=== PATIENT | female | born 1940 | race Caucasian/White ===

== ENCOUNTER 2021-02-26 15:32 | Emergency (ER) | payer MEDICAID ==
[~2021-02-26] VITALS: Ht 162.6 cm; Wt 68.0 kg
[2021-02-26 15:39] VITALS: BP 166/74
[2021-02-26] MEDS ORDERED: TETANUS, DIPHTHERIA, PERTUSSIS VAC/PF 0.5ML (>10YR OLD) IM ONE (16:45)
[2021-02-26] MEDS ORDERED: ACETAMINOPHEN 325MG TABLET PO ONE (16:45)
[2021-02-26] MEDS ORDERED: LIDOCAINE HCL/PF 1% 10 MG/ML 5ML VIAL INFIL ONE (16:45)
[2021-02-26] MEDS ORDERED: BACITRACIN ZINC OINT UDPKT TOP ONE (16:45)
[2021-02-26] MEDS ORDERED: LIDOCAINE HCL 1% 20ML VIAL (Pyxis) INJ INFIL SCH (17:00)
[2021-02-26] MEDS ORDERED: IBUP-2028 MT (18:17)
== END 2021-02-26 19:05 | disposition home or self-care (01) ==
LOC: ER 15:32
DX: S71.111A Laceration without foreign body, right thigh, initial encounter (principal); E78.00 Pure hypercholesterolemia, unspecified; I10 Essential (primary) hypertension; W22.8XXA Striking against or struck by other objects, initial encounter; Y93.89 Activity, other specified; Y92.018 Other place in single-family (private) house as the place of occurrence of the external cause
CPT/HCPCS: 12002; 90471; 90715; 99283; J3490

== ENCOUNTER 2021-02-28 15:55 | Emergency (ER) | payer MEDICAID ==
[~2021-02-28] VITALS: Ht 157.5 cm; Wt 75.0 kg
[~2021-02-28 15:55] MED LIST: IBUP-2028 MT
[2021-02-28 16:19] VITALS: BP 146/39
== END 2021-02-28 16:40 | disposition home or self-care (01) ==
LOC: ER 15:55
DX: Z48.00 Encounter for change or removal of nonsurgical wound dressing (principal)
CPT/HCPCS: 99281

== ENCOUNTER 2025-02-01 19:47 | Inpatient (IN) | payer MEDICAID ==
[~2025-02-01] VITALS: Ht 154.9 cm; Wt 47.8 kg
[2025-02-01 19:57] VITALS: O2SAT 97
[2025-02-01 21:12] LABS: HEMATOCRIT. 44.9 % (36.0-48.0); HEMOGLOBIN. 14.9 g/dL (12.0-16.0); MEAN PLATELET VOLUME 10.1 fl (7.4-10.4); PLATELET 167 x1000/uL (130-400); RED BLOOD CELL COUNT 4.55 mill/uL (4.2-5.4); RED CELL DISTRIBUTION WIDTH 13.6 % (11.6-14.6)
[2025-02-01 21:20] LABS: CREATININE 0.8 mg/dL (0.6-1.0); PROTEIN TOTAL 7.3 g/dL (6.0-8.3); UREA NITROGEN BLOOD 16 mg/dL (9-23)
[2025-02-01 21:21] LABS: ASPARTATE AMINOTRANSFERASE 29 IU/L (<34); TROPONIN I HIGH SENSITIVITY 17 ng/L (3.0-34)
[2025-02-01 21:22] LABS: BILIRUBIN DIRECT 0.2 mg/dL (<=3.0); BILIRUBIN TOTAL 0.8 mg/dL (0.1-1.0)
[2025-02-01] MEDS: ONDANSETRON HCL 4MG/2ML INJ IV ONE (21:22)
[2025-02-01] MEDS: SODIUM CHLORIDE 0.9% 1,000 ML IV ONE (21:22)
[2025-02-01 23:07] VITALS: BP 110/56; PULSE 71; RESP 18; TEMP 36.9; O2SAT 98
[2025-02-01 23:30] VITALS: BP 110/56; PULSE 71; RESP 18; TEMP 34.6944
[2025-02-01 23:35] LABS: LYMPHOCYTES % MANUAL 6.0 % (20.0-60.0); MONOCYTES % MANUAL 3.0 % (2.0-8.0); NEUTROPHILS % MANUAL 91.0 % (45.0-75.0); PLATELET ESTIMATE NORMAL
[2025-02-02] MEDS ORDERED: DEXTROSE 50% WATER 50ML SYRINGE IV PRN (02:00)
[2025-02-02] MEDS ORDERED: ONDANSETRON HCL 4MG/2ML INJ IV PRN (02:00)
[2025-02-02] MEDS ORDERED: HYDROCODONE/ACETAMINOPHEN 5/325MG TABLET PO PRN (02:00)
[2025-02-02] MEDS ORDERED: ACETAMINOPHEN 650MG/20.3ML UDC PO PRN (02:00)
[2025-02-02 04:00] VITALS: BP 100/58; PULSE 76; RESP 20; TEMP 36.6; O2SAT 99
[2025-02-02] MEDS: INSULIN LISPRO 100 UNITS/ML SUBCUT SCH (07:00)
[2025-02-02] MEDS: BLOOD SUGAR DIAGNOSTIC STRIP TEST SCH (07:00)
[2025-02-02 07:45] LABS: BASOPHILS % 0.2 % (0.0-2.0); EOSINOPHILS % 0.0 % (0.0-5.0); HEMATOCRIT. 37.5 % (36.0-48.0); HEMOGLOBIN. 12.6 g/dL (12.0-16.0); LYMPHOCYTES % 20.6 % (20.0-50.0); MEAN PLATELET VOLUME 10.2 fl (7.4-10.4); MONOCYTES % 7.2 % (2.0-8.0); NEUTROPHILS % 72.0 % (40.0-76.0); PLATELET 139 x1000/uL (130-400); RED BLOOD CELL COUNT 3.81 mill/uL (4.2-5.4); RED CELL DISTRIBUTION WIDTH 13.8 % (11.6-14.6)
[2025-02-02 07:46] LABS: CREATININE 0.7 mg/dL (0.6-1.0); TRIGLYCERIDE 69 mg/dL (0-150); UREA NITROGEN BLOOD 10 mg/dL (9-23)
[2025-02-02 07:47] LABS: LDL CHOLESTEROL 98 mg/dL (5-100)
[2025-02-02 08:00] VITALS: BP 119/46; PULSE 68; RESP 20; TEMP 36.5; O2SAT 95
[2025-02-02] MEDS: ATORVASTATIN CALCIUM 40MG TABLET PO SCH (08:13)
[2025-02-02] MEDS: AMLODIPINE 5MG TABLET PO SCH (08:14)
[2025-02-02 12:00] VITALS: BP 108/45; PULSE 70; RESP 20; TEMP 36.3; O2SAT 95
[2025-02-02] MEDS: ENOXAPARIN 40MG/0.4ML SYR SUBCUT SCH (13:32)
[2025-02-02 16:00] VITALS: BP 109/53; PULSE 67; RESP 18; TEMP 36.5; O2SAT 96
[2025-02-02 20:00] VITALS: BP 122/69; PULSE 84; RESP 17; TEMP 36.1; O2SAT 96
[2025-02-02 22:45] LABS: CLARITY URINE CLOUDY (CLEAR); COLOR URINE YELLOW (YELLOW); GLUCOSE URINE TRACE (NEGATIVE); KETONES URINE TRACE (NEGATIVE); LEUKOCYTE ESTERASE URINE 2+ (NEGATIVE); NITRITE URINE NEGATIVE (NEGATIVE); OCCULT BLOOD URINE 2+ (NEGATIVE); PH URINE 5.5 (4.5-8.0); PROTEIN URINE 1+ (NEGATIVE); SPECIFIC GRAVITY URINE 1.022 (1.005-1.030); UROBILINOGEN URINE 1.0 E.U./dL (0.2-1.0)
[2025-02-02 23:17] LABS: BACTERIA URINE 4+
[2025-02-02 23:18] LABS: SQUAMOUS EPITHELIAL CELL URINE 1+ /lpf (RARE/1+); WBC URINE 15-25 /hpf (0-2)
[2025-02-03] VITALS (7 sets, daily range): BP systolic 110–118; BP diastolic 50–66; PULSE 75–76; RESP 16–17; TEMP 36.6–36.8; O2SAT 97–98
[2025-02-03] MEDS: ASPIRIN 81MG TABLET PO SCH (08:35)
[2025-02-03] MEDS ORDERED: NALOXONE HCL 0.4MG/ML VIAL IV PRN (19:15)
[2025-02-03] MEDS: CEFTRIAXONE 1GM/50ML 50 ML IV SCH (21:00)
[2025-02-04] VITALS: BP 122/70; RESP 17; TEMP 36.4; O2SAT 98
[2025-02-04 04:00] VITALS: BP 132/73; RESP 16; TEMP 36.8; O2SAT 98
[2025-02-04 07:07] LABS: BASOPHILS % 0.6 % (0.0-2.0); EOSINOPHILS % 0.9 % (0.0-5.0); HEMATOCRIT. 38.6 % (36.0-48.0); HEMOGLOBIN. 12.8 g/dL (12.0-16.0); LYMPHOCYTES % 35.0 % (20.0-50.0); MEAN PLATELET VOLUME 9.8 fl (7.4-10.4); MONOCYTES % 7.9 % (2.0-8.0); NEUTROPHILS % 55.6 % (40.0-76.0); PLATELET 142 x1000/uL (130-400); RED BLOOD CELL COUNT 3.90 mill/uL (4.2-5.4); RED CELL DISTRIBUTION WIDTH 13.5 % (11.6-14.6)
[2025-02-04 07:31] LABS: CREATININE 0.7 mg/dL (0.6-1.0)
[2025-02-04 07:34] LABS: UREA NITROGEN BLOOD 9 mg/dL (9-23)
[2025-02-04 08:00] VITALS: BP 120/43; PULSE 77; RESP 17; TEMP 35.7; O2SAT 98
[2025-02-04] MEDS: ENOXAPARIN 30MG/0.3ML SYR SUBCUT SCH (08:22)
[2025-02-04 12:00] VITALS: BP 138/85; PULSE 71; RESP 17; TEMP 36.1; O2SAT 97
[2025-02-04] MEDS ORDERED: LEVO750T68 MT (12:10)
[2025-02-04 14:38] VITALS: BP 138/85; PULSE 71; RESP 17; TEMP 97
[2025-02-04] MEDS ORDERED: ATORVASTATIN CALCIUM 40MG TABLET PO SCH (21:00)
== END 2025-02-04 16:49 | disposition home or self-care (01) | DRG 463 ==
LOC: ER 19:47 → 6EST 21:17 → EDBEDREQ 21:20 → EDBEDREQTM 21:20 → ENRESERV 22:33
PROVIDERS: ADMIT Internal Medicine; ATTEND Internal Medicine
DX: N39.0 Urinary tract infection, site not specified (principal); R62.7 Adult failure to thrive; F03.90 Unspecified dementia, unspecified severity, without behavioral disturbance, psychotic disturbance, mood disturbance, and anxiety; I10 Essential (primary) hypertension; E78.5 Hyperlipidemia, unspecified; Z86.73 Personal history of transient ischemic attack (TIA), and cerebral infarction without residual deficits; Z79.899 Other long term (current) drug therapy
CPT/HCPCS: 36415; 80048; 80061; 80076; 81003; 82550; 82962; 83036; 84484; 85025; 86850; 86900; 87077; 87186; 93005; 97162; 99285; A4606; J0696; J1650; J2405; J7030